=== PATIENT | female | born 2000 | race African-American/Black ===

== ENCOUNTER 2022-01-25 10:12 | Outpatient (CLI) | payer OTHER ==
[~2022-01-25] VITALS: Ht 160 cm; Wt 71.8 kg
[2022-01-25 10:28] VITALS: BP 140/84; PULSE 100; TEMP 98.9
--- NOTE | 2022-01-25 10:28 | NUR ---
Pt arrived on the unit from the office for elevated blood pressures. Pt denies any contractions, leaking of fluid or vaginal bleeding and reports normal movement. Pt also reports a dull headache the last couple days but has not tried any medicine. EFM and toco monitors started. Serial blood pressures checks started. Dr. Cruz on the unit at the time. FHR tracing and vitals reviewed. Orders for labs received. Plan of care reviewed with pt and boyfriend at the bedside.
[2022-01-25 10:44] LABS: COLLECTION METHOD CLEAN CATCH
[2022-01-25 10:46] VITALS: BP 129/82; PULSE 93
[2022-01-25] MEDS ORDERED: NATURAL IRON65 MG (10:47)
[2022-01-25] MEDS ORDERED: PRENATAL (10:47)
[2022-01-25] MEDS ORDERED: COLACE 100100 MG/CAP PO (10:47)
[2022-01-25 10:50] LABS: BASO % 0.3 % (0.0-2.0); EOS # 0.1 K/mm3 (0.0-0.7); EOS % 0.7 % (0.0-4.0); GRAN % 74.9 % (42.2-75.2); HEMOGLOBIN 10.7 g/dl (12.5-16.0); LYMPH # 1.7 K/mm3 (1.2-3.4); LYMPH % 15.5 % (20.0-51.0); MEAN CELL VOLUME 86 fl (80.0-100.0); MEAN CORPUSCULAR HEMOGLOBIN 28 pg (27-31); MEAN CORPUSCULAR HGB CONC 33 g/dl (33.0-37.0); MEAN PLATELET VOLUME 11.3 fl (7.4-10.4); MONO # 0.8 K/mm3 (0.1-0.6); MONO % 7.6 % (1.7-9.3); PLATELET COUNT 165 K/mm3 (130-400); RED BLOOD COUNT 3.81 M/mm3 (4.10-5.30); REDCELL DISTRIBUTION WIDTH-CV 12.7 % (11.5-14.5)
[2022-01-25 10:51] LABS: HEMATOCRIT 32.6 % (37.0-47.0)
[2022-01-25 10:53] LABS: PH 7 (5-8); URINE APPEARANCE Clear (CLEAR/HAZY); URINE BACTERIA Many /hpf (NONE SEEN); URINE BILIRUBIN Negative (NEGATIVE); URINE BLOOD Negative (NEGATIVE); URINE COLOR Yellow (YELLOW); URINE GLUCOSE Negative (NEGATIVE); URINE KETONE Negative (NEGATIVE); URINE LEUKOCYTE ESTERASE Negative (NEGATIVE); URINE NITRATE Negative (NEGATIVE); URINE PROTEIN(semi-quant) Negative (NEGATIVE); URINE RBC 0-2 /hpf (0-2); URINE UROBILINOGEN Negative (NEGATIVE)
[2022-01-25 11:01] VITALS: BP 121/68; PULSE 82
[2022-01-25 11:02] LABS: ALBUMIN 2.5 gm/dL (3.5-5.0); BILIRUBIN,TOTAL 0.4 mg/dL (0.2-1.2); CREATININE, serum 0.63 mg/dL (0.57-1.11); POTASSIUM 3.2 mmol/L (3.5-4.5); TOTAL PROTEIN 6.4 gm/dL (6.2-8.1)
[2022-01-25 11:14] VITALS: BP 116/63; PULSE 81
== END 2022-01-25 11:36 | disposition home or self-care (01) ==
LOC: LDRO 10:12
PROVIDERS: Obstetrics & Gynecology
DX: O16.3 Unspecified maternal hypertension, third trimester (principal); Z3A.38 38 weeks gestation of pregnancy

== ENCOUNTER 2022-02-05 15:35 | Outpatient (CLI) | payer OTHER ==
[~2022-02-05] VITALS: Ht 160 cm; Wt 70.9 kg
[~2022-02-05 15:35] MED LIST: COLACE 100100 MG/CAP PO; NATURAL IRON65 MG; PRENATAL
--- NOTE | 2022-02-05 16:00 | NUR ---
PT AMBULATORY ONTO UNIT WITH FOB. COMPLAINING OF CONTRACTIONS. PT DENIES ANY VAGINAL BLEEDING, DECREASED MOVEMENT, OR LEAKING OF FLUID. FHR MONITOR/TOCO APPLIED. SVE BY Cata LANGFORD -/-2.
[2022-02-05 16:30] VITALS: BP 142/101; PULSE 89; TEMP 97.6
[2022-02-05 17:00] VITALS: BP 135/92; PULSE 93
[2022-02-05 17:32] VITALS: BP 125/82; PULSE 86
[2022-02-06] MEDS ORDERED: MOTRIN 800800 MG/TAB PO (19:56)
== END 2022-02-05 17:35 | disposition home or self-care (01) ==
LOC: LDRO 15:35
DX: O47.1 False labor at or after 37 completed weeks of gestation (principal); Z3A.40 40 weeks gestation of pregnancy

== ENCOUNTER 2022-02-05 22:01 | Inpatient (IN) | payer OTHER ==
[~2022-02-05] VITALS: Ht 160 cm; Wt 70.9 kg
--- NOTE | 2022-02-05 22:29 | NUR ---
Pt and significant other arrive ambulatory to unit from ER at 2205. Pt changed into gown, EFM explained and placed. Pt visibly uncomfortable, crying through contractions. VSS taken. SVE 3/-2, contractions firm on palpation. Pt denies leaking of fluid and vaginal bleeding, reports good movement.
[2022-02-05 22:30] VITALS: BP 140/94; PULSE 93; TEMP 99.1
[2022-02-05 23:30] VITALS: BP 125/79; PULSE 82; TEMP 98.5
--- NOTE | 2022-02-05 23:50 | NUR ---
Plan of care options provided by Dr. Wilhelm discussed with patient. Questions asked and answered. Pt declines further checks at this time and wishes to stay for therapeutic rest. Orders placed per Dr. Wilhelm.
[2022-02-06] VITALS (54 sets, daily range): BP systolic 101–161; BP diastolic 64–110; PULSE 75–151; TEMP 98.2–98.5
--- NOTE | 2022-02-06 02:50 | NUR ---
Pt sleeping soundly. EFM discontinued at this time to allow pt uninterrupted sleep. VSS.
--- NOTE | 2022-02-06 05:53 | NUR ---
Dr. Wilhelm on unit, notified of pt blood pressures since admission. Physician reviewed VS, no orders at this time.
--- NOTE | 2022-02-06 07:05 | NUR ---
0705SVE 2 with tight bag of water. Dr. Fernandez updated on pt. See physician notificaiton. Pt updated on plan of care. Requesting epidural. LR bolus infusing. 0730Lab to bedside. Consent forms explained and signed. [id number]. Karlene FIRE BATTALION CHIEF to bedside for epidural placement. FHr tracing intermittently due to maternal position. 0801Epidural placed and single shot by Amaya Soler CRNA. See anesthesia record.
[2022-02-06 07:33] LABS: BASO % 0.2 % (0.0-2.0); EOS % 0.1 % (0.0-4.0); GRAN # 11.4 K/mm3 (1.4-6.5); GRAN % 83.4 % (42.2-75.2); HEMATOCRIT 38.5 % (37.0-47.0); HEMOGLOBIN 12.5 g/dl (12.5-16.0); LYMPH # 1.3 K/mm3 (1.2-3.4); LYMPH % 9.5 % (20.0-51.0); MEAN CELL VOLUME 87 fl (80.0-100.0); MEAN CORPUSCULAR HEMOGLOBIN 28 pg (27-31); MEAN CORPUSCULAR HGB CONC 33 g/dl (33.0-37.0); MEAN PLATELET VOLUME 11.3 fl (7.4-10.4); MONO # 0.9 K/mm3 (0.1-0.6); MONO % 6.3 % (1.7-9.3); PLATELET COUNT 164 K/mm3 (130-400); RED BLOOD COUNT 4.44 M/mm3 (4.10-5.30); REDCELL DISTRIBUTION WIDTH-CV 14.6 % (11.5-14.5)
--- NOTE | 2022-02-06 12:35 | NUR ---
1235Bilateral side lying hip release.
--- NOTE | 2022-02-06 16:15 | NUR ---
1615Declines position change.
--- NOTE | 2022-02-06 17:11 | NUR ---
1711SVE C/+2. Dr. Fernandez updated on pt. See physicain nofitication. 1725Catheter removed. Amaya care provided. Pt instructed on pushing with ctx. Begins to push with contractions with RN at bedside. Strong maternal effort. Moves vertex well. 1747Dr. Fernandez updated on pt. See physician notification. 1801DrJeremy Fernandez to bedside. Pt continues to push with contractions. Moves vertex well. Small crown. 1815Report to Joyce Goff RN who assumes care of patient at this time.
--- NOTE | 2022-02-06 18:15 | NUR ---
1814 - THIS RN ASSUMING CARE OF PATIENT. PATIENT PUSHING WITH CONTRACTIONS. GOOD MATERNAL EFFORT. MD PARVEZ AT BEDSIDE. 1829 - SPONTANEOUS VAGINAL DELIVERY OF FEMALE . HEAD FOLLOWED BY BODY. CARE OF ASSUMED BY SUJEY EMERY FOR NURSERY. 1832 - SPONTANEOUS DELIVERY OF INTACT PLACENTA. PITOCIN BOLUS INITIATED. 1834 - REPAIR OF 2ND DEGREE LAC AND BILATERAL LABIAL TEARS PERFORMED BY MD PARVEZ. BLEEDING WNL. NILSON CARE PERFORMED. PATIENT REPOSITIONED. CARE ONGOING.
[2022-02-06] MEDS ORDERED: MOTRIN 800800 MG/TAB PO (19:56)
--- NOTE | 2022-02-06 21:35 | NUR ---
PATIENT TRANSFERRED TO BATHROOM IN LABOR ROOM. PATIENT VOIDED 200 ML OF CLEAR, YELLOW URINE. CLEAN PAD AND MESH PANTIES PROVIDED. ICE PACK TO PERINEUM. EPIDURAL CATHETER REMOVED. PATIENT THEN AMBULATED TO ROOM, PUSHING CRIB. PATIENT AND SIGNIFICANT OTHER ORIENTED TO ROOM AND PLAN OF CARE WAS REVIEWED.
[2022-02-07 01:45] VITALS: BP 131/89; PULSE 78; TEMP 98.1
[2022-02-07 06:19] VITALS: BP 133/82; PULSE 92; TEMP 97.7
[2022-02-07 07:29] VITALS: BP 139/97; PULSE 107; TEMP 97.8
--- NOTE | 2022-02-07 09:51 | NUR ---
Initial visit; Parents thanked Flake Or Shred Roll Operator for offering congratulations and God's blessings for the of their daughter. Flake Or Shred Roll Operator thanked family for choosing [facility].
[2022-02-07 16:58] VITALS: BP 134/89; PULSE 100; TEMP 97.5
[2022-02-07 19:50] VITALS: BP 134/89; PULSE 90; TEMP 98.2
[2022-02-08 08:40] VITALS: BP 131/91; PULSE 90; TEMP 97.8
== END 2022-02-08 13:35 | disposition home or self-care (01) | DRG 806 ==
LOC: LDRO 22:01 → LDR 22:30 → LDRO 02-06 07:12 → OB 02-06 07:13 → LDR 02-06 07:13 → OB 02-06 21:35
PROVIDERS: ADMIT Obstetrics & Gynecology
PROC: 10E0XZZ Delivery of Products of Conception, External Approach (ICD-10-PCS; principal; 2022-02-06)
PROC: 0KQM0ZZ Repair Perineum Muscle, Open Approach (ICD-10-PCS; 2022-02-06)
DX: O48.0 Post-term pregnancy (principal); O98.32 Other infections with a predominantly sexual mode of transmission complicating childbirth; Z37.0 Single live birth; O70.1 Second degree perineal laceration during delivery; O13.4 Gestational [pregnancy-induced] hypertension without significant proteinuria, complicating childbirth; A60.09 Herpesviral infection of other urogenital tract; Z3A.40 40 weeks gestation of pregnancy
CPT/HCPCS: OP; J1200; J2270; J2590; J7120